=== PATIENT | male | born 1975 | race Caucasian/White ===

== ENCOUNTER 2016-11-21 13:56 | Emergency (ER) | payer OTHER ==
[~2016-11-21] VITALS: Ht 170.2 cm; Wt 67.6 kg
[2016-11-21 14:03] VITALS: BP 128/69
[2016-11-21] MEDS ORDERED: NACL 0.9% 1,000 ML IV SCH (14:08)
--- NOTE | 2016-11-21 14:37 | NUR ---
Patient ambulated to bed 4. RN evaluating patient at bedside.
[2016-11-21] MEDS ORDERED: MULTIVITAMIN-12 10 ML, THIAMINE 100 MG, MAGNESIUM SULFATE 50% 2,000 MG, FOLIC ACID 5 MG... IV ONE (14:48)
[2016-11-21] MEDS ORDERED: NACL 0.9% 1,000 ML IV ONE (14:50)
--- NOTE | 2016-11-21 14:59 | NUR ---
PATIENT PRESENTS TO ED WITH MULTIPLE COMPLAINTS . PT STATES .SKIN IS PINK/WARM/DRY; AAOX4 WITH EVEN AND STEADY GAIT; LUNGS CLEAR BL; HR EVEN AND REGULAR; PATIENT STATES PAIN OF 8/10 AT THIS TIME; VSS; PATIENT POSITIONED FOR COMFORT; HOB ELEVATED; BEDRAILS UP X2; BED DOWN. ER MD MADE AWARE OF PT STATUS.
--- NOTE | 2016-11-21 15:58 | NUR ---
PT REQUESTING TO LEAVE AMA-- SPOKE WITH PT--AGREED TO DC AFTER BANANA BAG INFUSED---PT AGREED TO STAY DC HOME INSTRUCTIONS GIVEN TO PT---ADVICED TO STOP ABUSING ALCOHOL AND SEEK PROFESSIONAL ALCOHOLISM HELP. PT ALLOWED TO VENT--STAYED HE BEGAN DRINKING AFTER MOTHER , UNABLE TO COPE WITH MOTHER'S PASSING. FAMILY HAS TRIED TO HELP PER PT.
[2016-11-21 16:34] VITALS: BP 128/69
--- NOTE | 2016-11-21 16:36 | NUR ---
Patient discharged with v/s stable. Written and verbal after care instructions given and explained. Patient verbalized understanding. Ambulatory with steady gait. All questions addressed prior to discharge. Advised to follow up with PMD.
== END 2016-11-21 16:30 | disposition home or self-care (01) ==
LOC: MED 13:56
DX: K29.20 Alcoholic gastritis without bleeding (principal); F10.10 Alcohol abuse, uncomplicated; E78.5 Hyperlipidemia, unspecified; Y90.8 Blood alcohol level of 240 mg/100 ml or more
CPT/HCPCS: 36415; 71010; 80053; 80305; 81001; 82150; 82248; 83690; 85025; 85610; 85730; 96360; 99285; A9153; G0482; J3411; J3475; J3490; J7030

== ENCOUNTER 2017-11-21 11:17 | Inpatient (IN) | payer OTHER ==
[~2017-11-21] VITALS: Ht 172.7 cm; Wt 64.4 kg
[2017-11-21 11:22] VITALS: BP 152/90
--- NOTE | 2017-11-21 11:29 | NUR ---
PT AMBULATES TO BED 4
[2017-11-21] MEDS ORDERED: PANTOPRAZOLE 40 MG INJ VIAL IVP ONE (12:15)
[2017-11-21] MEDS ORDERED: THIAMINE 200 MG/2 ML VIAL IV ONE (12:15)
[2017-11-21] MEDS ORDERED: NACL 0.9% 2,000 ML IV ONE (12:15)
--- NOTE | 2017-11-21 12:28 | NUR ---
XRAY AT BEDSIDE
--- NOTE | 2017-11-21 12:30 | NUR ---
42-year-old Male who presents to the ED with 2 day history of production of bloody stools. Patient reports that he has been producing black stools for months now associated with intermittent episodes of vomiting blood but has not seek medical treatment. He reports that he has a history of cirrhosis, stomach issues, trouble with urination and bowel movements and is a frequent drinker.
[2017-11-21] MEDS ORDERED: cefTRIAXone 1,000 MG VIAL ONE (12:35)
[2017-11-21 12:46] LABS: BASOPHILS % (AUTO) 0.6 % (0.0-2.0); EOSINOPHILS % (AUTO) 0.9 % (0.0-4.0); HEMATOCRIT 38.2 % (36-52); HEMOGLOBIN 12.8 g/dL (12.0-18.0); LYMPHOCYTES # (AUTO) 0.8 K/uL (2.0-11.5); LYMPHOCYTES % (AUTO) 14.7 % (20.5-51.1); MEAN CORPUSCULAR HEMOGLOBIN 31 pg (27-31); MEAN CORPUSCULAR HGB CONC 34 g/dL (33-37); MONOCYTES # (AUTO) 0.7 K/uL (0.8-1.0); NEUTROPHILS # (AUTO) 3.7 K/uL (1.8-7.7); NEUTROPHILS % (AUTO) 70.8 % (42.2-75.2); PLATELET COUNT (AUTO) 139 K/uL (140-450); RED CELL DISTRIBUTION WIDTH 17.7 % (11.6-13.7); WHITE BLOOD COUNT (AUTO) 5.3 K/uL (4.8-10.8)
[2017-11-21 12:56] LABS: BARBITURATE, URINE NEG. ng/ml (NEG <=200); BENZODIAZEPINE, URINE NEG. ng/mL (NEG <=200); CANNABINOID, URINE POS. ng/mL (NEG <=50); COCAINE, URINE NEG. ng/mL (NEG <=300); OPIATE, URINE NEG. ng/mL (NEG <=2000); PHENCYCLIDINE SCREEN,URINE NEG. ng/mL (NEG <=25)
[2017-11-21 12:58] LABS: PROTHROMBIN TIME 10.4 secs (10.8-13.4)
[2017-11-21] MEDS ORDERED: THIAMINE 100 MG TAB PO SCH (13:03)
[2017-11-21] MEDS ORDERED: MULTIVITAMIN 1 TAB PO SCH (13:04)
[2017-11-21] MEDS ORDERED: FOLIC ACID 1 MG TAB PO SCH (13:04)
[2017-11-21 13:23] LABS: ANION GAP 23.1 (8-16); CARBON DIOXIDE 22.8 mmol/L (21-32); CREATININE 0.7 mg/dL (0.7-1.3); POTASSIUM 3.9 mmol/L (3.5-5.1)
[2017-11-21 13:25] LABS: APPEARANCE,URINE SL CLOUDY (CLEAR); BILIRUBIN,URINE NEGATIVE (NEGATIVE); BLOOD, URINE TRACE-I (NEGATIVE); LEUKOCYTE ESTERASE ,URINE NEGATIVE (NEGATIVE); NITRITE, URINE NEGATIVE (NEGATIVE); PH,URINE 5.5 (5.0-9.0); UGLUCOSE NEGATIVE (NEGATIVE)
[2017-11-21 13:37] LABS: MAGNESIUM 1.6 mg/dL (1.8-2.4); PHOSPHORUS 2.8 mg/dL (2.5-4.9); TOTAL BILIRUBIN 1.1 mg/dL (0.0-1.0)
[2017-11-21 13:58] LABS: COLOR,URINE YELLOW (YELLOW)
[2017-11-21 13:59] LABS: RBC,URINE 0-5 (RARE) /HPF (0-5); WBC,URINE 0-5 (RARE) /HPF (0-5)
[2017-11-21 14:00] LABS: URINE AMORPHOUS URATE 2+ /HPF (None Seen)
[2017-11-21] MEDS ORDERED: NACL 0.9% 1,000 ML IV ONE (16:40)
[2017-11-21] MEDS ORDERED: ACETAMINOPHEN 325 MG TAB PO PRN (16:40)
[2017-11-21] MEDS ORDERED: MORPHINE SULFATE 4 MG/ML SYR IVP PRN (16:40)
[2017-11-21] MEDS ORDERED: ONDANSETRON 4 MG/2 ML VIAL IVP PRN (16:40)
[2017-11-21] MEDS ORDERED: DILTIAZEM 25 MG/5 ML VIAL IVP PRN (16:50)
--- NOTE | 2017-11-21 17:43 | NUR ---
RECEIVED REPORT FROM ER NURSE DALTON. PATIENT ABLE TO AMBULATE TO BED. PATIENT PRESENTS WITH SHAKINESS OF UPPER EXTREMITIES. PATIENT IS ALERT AND ORIENTED X4 AT THIS TIME. PATIENT VITAL SIGNS ARE 99.0, 149/99, 124 HR, 02 96%. SWABBED PATIENT'S NARES WITH MRSA SWAB. PATIENT SHOWS NO SIGNS OF RESPIRATORY DISTRESS. NO PAIN NOTED AT THIS TIME. WILL CONTINUE TO MONITOR PATIENT.
--- NOTE | 2017-11-21 17:45 | NUR ---
Shara breenvika in EDM - 11/21/17 at 1746 by MARY 42-year-old Male who presents to the ED with 2 day history of production of bloody stools. Patient reports that he has been producing black stools for months now associated with intermittent episodes of vomiting blood but has not seek medical treatment.
--- NOTE | 2017-11-21 17:46 | NUR ---
Patient will be admitted to care of DR PATEL. Admited to TELE 126B. Will go to room 126B. Belongings list completed. Report to ERICH.
[2017-11-21] MEDS: chlordiazePOXIDE 25 MG CAP PO SCH (18:27)
--- NOTE | 2017-11-21 18:39 | NUR ---
STARTED PATIENT FLUIDS AT NS 100ML/HR. PATIENT'S IV IS ON THE RIGHT FOREARM. ADMINISTERED PATIENT'S LIBRIUM FOR ALCOHOL WITHDRAWAL. ENCOURAGED PATIENT TO CALL IF HE NEEDS HELP AMBULATING. WILL CONTINUE TO MONITOR PATIENT.
--- NOTE | 2017-11-21 19:13 | NUR ---
RECEIVED REPORT AT BEDSIDE. PT AAOX4. NO S/S OF ACUTE DISTRESS. PT DENIES PAIN. IV SITE PATENT AND INTACT. CALL LIGHT WITHIN REACH. SAFETY MEASURES ENSURED. WILL CONTINUE TO MONITOR.
--- NOTE | 2017-11-21 19:15 | NUR ---
GAVE REPORT TO NIGHTSHIFT NURSE. PATIENT IN STABLE CONDITION.
[2017-11-21 20:00] VITALS: BP 143/86
[2017-11-21] MEDS: PANTOPRAZOLE 40 MG INJ VIAL IVP SCH (21:02)
[2017-11-21] MEDS: LORazepam 2 MG/ML VIAL IVP PRN (22:55)
--- NOTE | 2017-11-21 22:56 | NUR ---
PT STATES HE FEELS ANXIOUS AND CANT SLEEP. ATIVAN GIVEN. WILL CONTINUE TO MONITOR.
[2017-11-21] MEDS ORDERED: PNEUMOCOCCAL VACCINE 23 MCG/0.5 ML VIAL IMVAC SCH (23:00)
[2017-11-21] MEDS ORDERED: PNEUMOCOCCAL VACCINE 23 MCG/0.5 ML VIAL IMVAC PRN (23:00)
[2017-11-22] VITALS: BP 126/86
--- NOTE | 2017-11-22 00:13 | NUR ---
PT SLEEPING IN BED. NO S/S OF ACUTE DISTRESS. CALL LIGHT WITHIN REACH. SAFETY MEASURES ENSURED. WILL CONTINUE TO MONITOR.
[2017-11-22 04:00] VITALS: BP 144/93
--- NOTE | 2017-11-22 07:22 | NUR ---
RECEIVED REPORT FROM NIGHTSHIFT NURSE AT BEDSIDE. PATIENT IS AWAKE AT THIS TIME IN SEMI-FOWLERS POSITION. PATIENT'S IV BAG NEEDS TO BE CHANGED AT THIS TIME. PATIENT ALERT AND ORIENTEDX3. NO COMPLAINTS OF PAIN AT THIS TIME. PATIENT'S IV IS NOTED ON THE RIGHT FOREARM 20G RUNNING 100 ML/HR. PATIENT PRESENTS WITH SHAKING OF EXTREMITIES. INSTRUCTED PATIENT TO CALL IF HE NEEDS HELP WITH AMBULATING. PATIENT UNDERSTOOD INSTRUCTIONS. PUT CALL LIGHT WITHIN REACH OF PATIENT.
[2017-11-22 08:00] VITALS: BP 128/93
--- NOTE | 2017-11-22 08:00 | NUR ---
SWAPPED PATIENT'S IV BAG. HUNG 1000 ML NS AT 100ML/HR.
[2017-11-22] MEDS: chlordiazePOXIDE 25 MG CAP PO SCH ×3 (08:20→16:05)
[2017-11-22 08:21] LABS: BASOPHILS % (AUTO) 0.6 % (0.0-2.0); EOSINOPHILS # (AUTO) 0.1 K/uL (0-0.4); HEMATOCRIT 37.9 % (36-52); HEMOGLOBIN 12.4 g/dL (12.0-18.0); LYMPHOCYTES % (AUTO) 21.2 % (20.5-51.1); MEAN CORPUSCULAR HEMOGLOBIN 31 pg (27-31); MEAN CORPUSCULAR HGB CONC 33 g/dL (33-37); MEAN CORPUSCULAR VOLUME 93.8 fL (80-94); MONOCYTES # (AUTO) 0.6 K/uL (0.8-1.0); MONOCYTES % (AUTO) 13.2 % (1.7-9.3); PLATELET COUNT (AUTO) 120 K/uL (140-450); RED BLOOD CELL COUNT(AUTO) 4.04 MIL/uL (4.20-6.10); RED CELL DISTRIBUTION WIDTH 18.3 % (11.6-13.7); WHITE BLOOD COUNT (AUTO) 4.8 K/uL (4.8-10.8)
[2017-11-22] MEDS: FOLIC ACID 1 MG TAB PO SCH (08:21)
[2017-11-22] MEDS: PANTOPRAZOLE 40 MG INJ VIAL IVP SCH ×2 (08:21→20:37)
[2017-11-22] MEDS: THIAMINE 100 MG TAB PO SCH (08:21)
[2017-11-22 10:27] LABS: ALBUMIN 3.6 g/dL (3.4-5.0); ANION GAP 16.2 (8-16); CARBON DIOXIDE 25.3 mmol/L (21-32); CREATININE 0.8 mg/dL (0.7-1.3); POTASSIUM 3.5 mmol/L (3.5-5.1)
--- NOTE | 2017-11-22 10:30 | NUR ---
PATIENT HAS BEEN SCREENED AND CATEGORIZED MODERATE NUTRITION RISK. PATIENT WILL BE SEEN WITHIN 3-5 DAYS OF ADMISSION. 11/24/17 - 11/26/[address]
--- NOTE | 2017-11-22 11:13 | NUR ---
PATIENT RESTING IN BED AT THIS TIME. NO COMPLAINTS OF PAIN. NO RESPIRATORY DISTRESS OR RESPIRATORY DEPRESSION. WILL CONTINUE TO MONITOR PATIENT.
[2017-11-22 12:00] VITALS: BP 127/72
--- NOTE | 2017-11-22 12:30 | NUR ---
CM NOTE INITIAL REVIEW FAXED TO [facility] [phone] MARIKA # [phone]
--- NOTE | 2017-11-22 13:00 | NUR ---
PATIENT ASLEEP AT THIS TIME. WILL CONTINUE TO MONITOR PATIENT.
--- NOTE | 2017-11-22 14:04 | NUR ---
PATIENT SLEEPING AT THIS TIME. PATIENT SLEEPING IN RIGHT LATERAL POSITION. NO SIGNS OF PAIN AND NO RESPIRATORY DISTRESS OR RESPIRATORY DEPRESSION. WILL CONTINUE TO MONITOR PATIENT.
--- NOTE | 2017-11-22 14:52 | NUR ---
PATIENT'S STOOL IS WATERY, UNFORMED, AND HAS BLOOD. DR. PATEL IS AWARE. DR. PATEL ASKED TO FOLLOW UP WITH DR. MCKEON. PATIENT IS IN STABLE CONDITION AT THIS TIME.
--- NOTE | 2017-11-22 14:59 | NUR ---
TALKED TO DR. MCKEON REGARDING PATIENT'S BLOODY STOOL. SAID HE WILL SEE PATIENT LATER ON TODAY.
[2017-11-22 16:00] VITALS: BP 124/79
--- NOTE | 2017-11-22 18:57 | NUR ---
PATIENTS FAMILY AT BEDSIDE. PATIENT IN NO RESPIRATORY DISTRESS. NO COMPLAINTS OF PAIN AT THIS TIME. WILL CONTINUE TO MONITOR PATIENT.
--- NOTE | 2017-11-22 19:11 | NUR ---
GAVE REPORT TO NIGHTSHIFT NURSE AT BEDSIDE. PATIENT IN STABLE CONDITION.
[2017-11-22 20:00] VITALS: BP 117/80
[2017-11-22] MEDS: LORazepam 2 MG/ML VIAL IVP PRN (20:37)
--- NOTE | 2017-11-22 20:39 | NUR ---
DUE MEDS GIVEN AT THIS TIME. PT STATES HE FEELS ANXIOUS AT THIS TIME AND REQUESTS ATIVAN. NO S/S OF ACUTE DISTRESS. PT DENIES PAIN. CALL LIGHT WITHIN REACH. SAFETY MEASURES ENSURED. WILL CONTINUE TO MONITOR.
[2017-11-23] VITALS: BP 132/86
[2017-11-23 04:00] VITALS: BP 136/88
--- NOTE | 2017-11-23 07:10 | NUR ---
ASSUMED CONTINUITY OF CARE. NO SIGNS AND SYMPTOMS OF ACUTE DISTRESS NOTED. INITIAL ASSESSMENT DONE. EXPLAINED DIAGNOSIS, PLAN OF CARE, PAIN MANAGEMENT TEACHING, USE OF CALL LIGHT/BED/TV/BATHROOM. VERBALIZED UNDERSTANDING. FALL PRECAUTION APPLIED. CALL LIGHT WITHIN REACH.
[2017-11-23] MEDS ORDERED: MIDAZOLAM 2 MG/2 ML VIAL ONE ×2 (07:53→07:54)
[2017-11-23] MEDS ORDERED: fentaNYL 0.05 MG/ML VIAL ONE (07:53)
[2017-11-23 08:00] VITALS: BP 137/84
--- NOTE | 2017-11-23 08:00 | NUR ---
Patient's Plan of Care was discussed and reviewed with CATTLE BROKER: ANA MARIA
--- NOTE | 2017-11-23 08:17 | NUR ---
WENT TO GI [facility]. AWAKE, ALERT, AND ORIENTED X4. NO C/O PAIN. IN STABLE CONDITION.
[2017-11-23] MEDS ORDERED: MUPIROCIN 2% OINT 22 GM TUBE TP SCH (09:00)
[2017-11-23] MEDS ORDERED: fentaNYL 0.05 MG/ML VIAL IVP ONE (09:15)
[2017-11-23] MEDS ORDERED: MIDAZOLAM 2 MG/2 ML VIAL IV ONE (09:15)
--- NOTE | 2017-11-23 09:21 | NUR ---
[facility] NO ACUTE DISTRESS NOTED. KEEP COMFORTABLE ON BED. CALL LIGHT WITHIN REACH.
[2017-11-23] MEDS: FOLIC ACID 1 MG TAB PO SCH (09:35)
[2017-11-23] MEDS: THIAMINE 100 MG TAB PO SCH (09:35)
[2017-11-23] MEDS: chlordiazePOXIDE 25 MG CAP PO SCH ×2 (09:36→12:42)
[2017-11-23] MEDS: PANTOPRAZOLE 40 MG INJ VIAL IVP SCH (10:06)
--- NOTE | 2017-11-23 10:25 | NUR ---
EXPLAINED AND EDUCATED PT. ABOUT MRSA + NARES, AND ISOLATION PRECAUTION. VERBALIZED UNDERSTANDING.
--- NOTE | 2017-11-23 10:32 | NUR ---
PAGED DR. PATEL REGARDING PT. MRSA + NARES. LEFT CALL BACK NUMBER.
[2017-11-23 12:00] VITALS: BP 122/89
--- NOTE | 2017-11-23 12:39 | NUR ---
CM NOTE CONCURRENT REVIEW FAXED TO [facility] [phone] MARIKA # [phone]
--- NOTE | 2017-11-23 14:45 | NUR ---
HANY BRYANT, REVIEWED PT. CHART AND SEEN PT..
--- NOTE | 2017-11-23 14:56 | NUR ---
PAGED DR. MCKEON REGARDING DR. PATEL REQUEST IF PT. CAN BE D/C HOME. LEFT CALL BACK NUMBER.
--- NOTE | 2017-11-23 15:02 | NUR ---
DR. MCKEON CALLED BACK, AND SAID THAT PT. CAN BE D/C HOME AND FOLLOW UP WITH DR. MCKEON CLINIC IN [address]. [address] PATEL THAT PER DR. MCKEON PT. CAN BE D/C HOME WITH F/U IN [address] MCKEON CLINIC. ALSO INFORMED CHARGE NURSE KYLAH VASQUEZ.
[2017-11-23] MEDS ORDERED: LORA-476 PO (15:18)
[2017-11-23] MEDS ORDERED: PANT40EC PO (15:19)
[2017-11-23 15:47] LABS: ALBUMIN 3.7 g/dL (3.4-5.0); ANION GAP 15.6 (8-16); CARBON DIOXIDE 23.5 mmol/L (21-32); POTASSIUM 3.1 mmol/L (3.5-5.1); TOTAL BILIRUBIN 1.8 mg/dL (0.0-1.0)
[2017-11-23 15:49] LABS: HEMATOCRIT 39.1 % (36-52); HEMOGLOBIN 12.9 g/dL (12.0-18.0)
--- NOTE | 2017-11-23 16:01 | NUR ---
PAGED HANY LUTZ AND SPOKE TO MAGED REGARDING PT. K 3.1. LEFT CALL BACK NUMBER. INFORMED CHARGE NURSE KYLAH VASQUEZ.
--- NOTE | 2017-11-23 16:15 | NUR ---
EXPLAINED ABOUT K 3.1 AND JUST WAITING FOR HANY LUTZ FOR ORDERS. PT. DON'T WANT TO WAIT FOR ORDERS. INSISTED TO BE D/C AT THIS TIME. REFUSED VS CHECK BEFORE D/C. NO ACUTE DISTRESS NOTED. REFUSED WHEELCHAIR FOR D/C. PT. AMBULATORY. D/C HOME, AWAKE, ALERT, AND ORIENTED X4. SPEECH CLEAR. NO C/O PAIN. NO SOB, NOTED. IN STABLE CONDITION. INFORMED CHARGE NURSE KYLAH VASQUEZ.
--- NOTE | 2017-11-23 16:33 | NUR ---
HANY LUTZ CALLED BACK AND INFORMED PT. HGB 12.9, HCT 39.1, AND K 3.1. ALSO INFORMED HANY LUTZ THAT PT. WAS D/C AT 1615 AND DID NOT WAIT ORDERS FOR LOW K. HANY LUTZ SAID "THAT'S FINE. INFORMED CHARGE NURSE KYLAH VASQUEZ.
[2017-11-24] MEDS ORDERED: CHLORHEXADINE GLUC 2% CLOTH TP SCH (09:00)
--- NOTE | 2017-11-24 12:49 | NUR ---
CM NOTE DC SUMMARY FAXED TO [facility] [phone] MARIKA # [phone]
== END 2017-11-23 16:15 | disposition home or self-care (01) | DRG 775 ==
LOC: MED 11:17 → MMU 16:45
PROVIDERS: ADMIT Hospitalist; ATTEND Hospitalist
PROC: 0DB68ZX Excision of Stomach, Via Natural or Artificial Opening Endoscopic, Diagnostic (ICD-10-PCS; principal; 2017-11-23 08:30)
DX: F10.239 Alcohol dependence with withdrawal, unspecified (principal); E87.2 Acidosis; I85.10 Secondary esophageal varices without bleeding; K29.01 Acute gastritis with bleeding; E83.42 Hypomagnesemia; K70.30 Alcoholic cirrhosis of liver without ascites; E78.5 Hyperlipidemia, unspecified; F41.9 Anxiety disorder, unspecified; F12.10 Cannabis abuse, uncomplicated; K44.9 Diaphragmatic hernia without obstruction or gangrene; Y90.9 Presence of alcohol in blood, level not specified; F17.210 Nicotine dependence, cigarettes, uncomplicated; F19.10 Other psychoactive substance abuse, uncomplicated
CPT/HCPCS: 36415; 71045; 76700; 80053; 80305; 81001; 82140; 83605; 83690; 83735; 84100; 84484; 85018; 85025; 85610; 85730; 86677; 86886; 86900; 86901; 87081; 87086; 93005; 96365; 96375; 99285; C9113; G0482; J0696; J2060; J2250; J3010; J7030; J7060; Q0092

== ENCOUNTER 2019-06-23 15:17 | Inpatient (IN) | payer MEDICAID, OTHER ==
[~2019-06-23] VITALS: Ht 172.7 cm; Wt 64.4 kg
[~2019-06-23 15:17] MED LIST: LORA-476 PO; PANT40EC PO
[2019-06-23 16:02] VITALS: BP 133/93
--- NOTE | 2019-06-23 16:07 | NUR ---
ASSISTED PT TO WAIT IN THE LOBBY.
[2019-06-23 16:52] LABS: BASOPHILS # (AUTO) 0.2 K/uL (0.00-0.22); EOSINOPHILS # (AUTO) 0.1 K/uL (0-0.4); EOSINOPHILS % (AUTO) 0.8 % (0.0-4.0); HEMATOCRIT 25.2 % (36-52); HEMOGLOBIN 7.6 g/dL (12.0-18.0); LYMPHOCYTES # (AUTO) 1.5 K/uL (2.0-11.5); LYMPHOCYTES % (AUTO) 22.9 % (20.5-51.1); MEAN CORPUSCULAR HEMOGLOBIN 25 pg (27-31); MEAN CORPUSCULAR HGB CONC 30 g/dL (33-37); MONOCYTES # (AUTO) 0.7 K/uL (0.8-1.0); MONOCYTES % (AUTO) 11.6 % (1.7-9.3); NEUTROPHILS % (AUTO) 61.7 % (42.2-75.2); PLATELET COUNT (AUTO) 190 K/uL (140-450); RED BLOOD CELL COUNT(AUTO) 3.08 MIL/uL (4.20-6.10); RED CELL DISTRIBUTION WIDTH 25.4 % (11.6-13.7); WHITE BLOOD COUNT (AUTO) 6.4 K/uL (4.8-10.8)
[2019-06-23 17:14] LABS: ALBUMIN 3.5 g/dL (3.4-5.0); ANION GAP 19.8 (8-16); CARBON DIOXIDE 21.8 mmol/L (21-32); CREATININE 0.6 mg/dL (0.7-1.3); POTASSIUM 3.6 mmol/L (3.5-5.1); TOTAL BILIRUBIN 0.4 mg/dL (0.0-1.0)
--- NOTE | 2019-06-23 17:25 | NUR ---
PT AMBULATED TO BED 10.
[2019-06-23 17:33] LABS: PROTHROMBIN TIME 9.4 secs (10.8-13.4)
--- NOTE | 2019-06-23 17:50 | NUR ---
C/O INTERMITTENT BRIGHT RED BLOOD PER RECTUM WITH FREQUENT LOOSE STOOLS, DAILY ETOH ABUSE WITH MILD TREMORS AT THIS TIME--- RIGHT EYE SWELLING REDNESS PAIN SURROUNDING OD--DENIES INJURY
--- NOTE | 2019-06-23 19:14 | NUR ---
Report given to DEMARCO burgess, MARCUS Valladares.
--- NOTE | 2019-06-23 19:15 | NUR ---
REPORT RECEIVED FROM MARCUS SAAVEDRA. TRANSFER OF CARE AT THIS TIME.
--- NOTE | 2019-06-23 19:18 | NUR ---
PT AWAKE, A/O X4. CALM, COOPERATIVE. ABLE TO ANSWER QUESTIONS WITHOUT DIFFICULTY WITH CLEAR, FULL SENTENCES. PT REPORTS 5/10 PAIN TO RIGHT SIDE FACE RADIATING TO EYE WHERE SWELLING AND REDNESS IS PRESENT. PT ALSO STATES HE FEELS A LITTLE ANXIOUS DUE TO ETOH WITHDRAWAL.
--- NOTE | 2019-06-23 19:20 | NUR ---
DR. KELLY EVALUATING AT BEDSIDE.
[2019-06-23] MEDS ORDERED: PIPERACILLIN/TAZOBACTAM 3.375 GM in DEXTROSE 5% 50 ML IV ONE (19:25)
[2019-06-23] MEDS ORDERED: PIPERACILLIN/TAZOBACTAM 3.375 GM VIAL IV ONE (19:36)
--- NOTE | 2019-06-23 19:40 | NUR ---
BLOOD CX DRAWN AT BEDSIDE.
[2019-06-23] MEDS ORDERED: ACETAMINOPHEN 325 MG TAB PO PRN (19:45)
[2019-06-23] MEDS ORDERED: MORPHINE SULFATE 2 MG/ML SYR IVP PRN (19:45)
[2019-06-23] MEDS ORDERED: HYDROcodone/APAP 7.5/325 MG 1 TAB PO PRN (19:45)
[2019-06-23] MEDS ORDERED: ONDANSETRON 4 MG/2 ML VIAL IM/IVP PRN (19:45)
[2019-06-23] MEDS ORDERED: NACL 0.9% 1,000 ML IV SCH (20:00)
--- NOTE | 2019-06-23 20:00 | NUR ---
DR. SINGH EVALUATING AT BEDSIDE.
--- NOTE | 2019-06-23 20:15 | NUR ---
PT SIGNED CONSENT FORM FOR BLOOD TRANSFUSION, WITNESSED BY PRIMARY RN, SIGNED BY DR. KELLY.
--- NOTE | 2019-06-23 20:20 | NUR ---
URINE SAMPLE COLLECTED VIA URINAL.
--- NOTE | 2019-06-23 20:25 | NUR ---
PATIENT TRANSFERRED TO [facility] VIA GURNEY, PATIENT ABLE TO AMBULATE TO BED.
[2019-06-23 20:30] VITALS: BP 125/85
--- NOTE | 2019-06-23 20:30 | NUR ---
RECEIVED ENDORSEMENT FROM ER NURSE AT PATIENTS BEDSIDE, WILL FOLLOWUP CARE
--- NOTE | 2019-06-23 20:30 | NUR ---
Patient will be admitted to care of Dr. Raya. Admited to Telemetry. Will go to room 106B. Belongings list completed. Report to MARCUS Mcwilliams.
[2019-06-23 20:38] LABS: APPEARANCE,URINE CLEAR (CLEAR); BILIRUBIN,URINE NEGATIVE (NEGATIVE); BLOOD, URINE TRACE-L (NEGATIVE); COLOR,URINE YELLOW (YELLOW); LEUKOCYTE ESTERASE ,URINE NEGATIVE (NEGATIVE); NITRITE, URINE NEGATIVE (NEGATIVE); PH,URINE 5.5 (5.0-9.0); UGLUCOSE NEGATIVE (NEGATIVE)
[2019-06-23 20:45] LABS: BARBITURATE, URINE NEG. ng/ml (NEG <=200); BENZODIAZEPINE, URINE NEG. ng/mL (NEG <=200); CANNABINOID, URINE NEG. ng/mL (NEG <=50); COCAINE, URINE NEG. ng/mL (NEG <=300); OPIATE, URINE NEG. ng/mL (NEG <=2000); PHENCYCLIDINE SCREEN,URINE NEG. ng/mL (NEG <=25)
[2019-06-23 20:48] LABS: RBC,URINE 0-5 /HPF (0-5); WBC,URINE 0-5 /HPF (0-5)
[2019-06-23] MEDS: PANTOPRAZOLE 40 MG INJ VIAL IVP SCH (20:57)
[2019-06-23 20:59] LABS: FREE T4 (FREE THYROXINE) 0.88 ng/dL (0.76-1.46); THYROID STIMULATING HORMONE 0.5 uIU/mL (0.34-3.74)
[2019-06-23 21:00] LABS: MAGNESIUM 1.8 mg/dL (1.8-2.4); PHOSPHORUS 3.1 mg/dL (2.5-4.9)
[2019-06-23] MEDS ORDERED: NACL 0.9% 1,000 ML IV ONE (21:00)
[2019-06-23] MEDS ORDERED: LORazepam 1 MG TAB PO SCH (21:00)
[2019-06-23] MEDS ORDERED: LORazepam 2 MG/ML VIAL IVP SCH ×2 (21:00→22:30)
--- NOTE | 2019-06-23 21:00 | NUR ---
RECEIVED PATIENT SITTING UP IN BED, ANOx4, ON ROOM AIR. PATIENT ABLE TO MAKE NEEDS KNOWN, FOLLOWS SIMPLE COMMANDS. ON TELE MONITOR, SINUS TACH, HEART RATE 135, BP-125/85, RR-16, TEMP-99.2. SKIN WARM AND DRY, INTACT. RIGHT AC PERIPHERAL IV 20G, FLUSHED AND PATENT, NO SYMPTOMS, SALINE LOCKED. ABDOMEN SOFT AND NONTENDER, ACTIVE BOWEL SOUNDS. PATIENT IS CONTINENT, AMBULATES TO RESTROOM. PATIENT HAS TREMORS, OBVIOUS SHAKING NOTED, PATIENT IS COOPERATIVE AND RN WILL DISCUSS CAREPLAN. ORIENTED TO CALL LIGHT AND BATHROOM. BED LOCKED AND IN LOW POSITION, SIDERAILS UP x2, CALL LIGHT WITHIN REACH, WILL FOLLOWUP ON ADMITTING ORDERS
[2019-06-23] MEDS: DEXT 5% /NACL 0.9% 1,000 ML IV SCH (21:33)
--- NOTE | 2019-06-23 22:15 | NUR ---
PATIENTS HEART RATE INCREASING TO 150'S. ORIENTED TO FAMILY THAT PATIENT NEEDS REST AND SHOULD MINIMIZE AROUSAL-(FAMILY MEMBERS VISITING AND BROUGHT IN IPAD TO WATCH BOXING), FAMILY WILL RETURN IN A.M. RESIDENT DOCTOR MADE AWARE THAT PATIENTS HEART RATE IS INCREASING, RESIDENT DOCTOR AT BEDSIDE TO ASSESS PATIENT. NEW ORDERS FOR ANOTHER DOSE OF ATIVAN AND BNP BMP. WILL CARRY OUT
[2019-06-23 22:59] LABS: BASOPHILS # (AUTO) 0.1 K/uL (0.00-0.22); HEMATOCRIT 21.1 % (36-52); MONOCYTES # (AUTO) 0.7 K/uL (0.8-1.0); WHITE BLOOD COUNT (AUTO) 5.6 K/uL (4.8-10.8)
[2019-06-23 23:02] LABS: EOSINOPHILS % (AUTO) 0.4 % (0.0-4.0); LYMPHOCYTES # (AUTO) 0.5 K/uL (2.0-11.5); LYMPHOCYTES % (AUTO) 9.5 % (20.5-51.1); MEAN CORPUSCULAR HEMOGLOBIN 25 pg (27-31); MEAN CORPUSCULAR HGB CONC 31 g/dL (33-37); MONOCYTES % (AUTO) 12.1 % (1.7-9.3); NEUTROPHILS # (AUTO) 4.3 K/uL (1.8-7.7); PLATELET COUNT (AUTO) 141 K/uL (140-450); RED BLOOD CELL COUNT(AUTO) 2.61 MIL/uL (4.20-6.10); RED CELL DISTRIBUTION WIDTH 25.6 % (11.6-13.7)
[2019-06-23 23:14] LABS: HEMOGLOBIN 6.6 g/dL (12.0-18.0)
--- NOTE | 2019-06-23 23:45 | NUR ---
CALLED BLOOD BANK REGARDING PT'S BLOOD.IT IS NOT READY YET.THEY ARE WAITING FOR EMPERATRIZ.
[2019-06-24] VITALS: BP 128/82
--- NOTE | 2019-06-24 00:50 | NUR ---
ASSISTED PATIENT TO RESTROOM, VOIDED AND HAD A BOWEL MOVEMENT, PATIENT FORGOT TO ALLOW RN TO ASSESS STOOL BEFORE FLUSHING. PATIENT REPORTS HE FORGOT TO CHECK FOR BLOOD WHEN WIPING. PATIENT AMBULATES BACK TO BED WITHOUT INCIDENTS.
--- NOTE | 2019-06-24 02:25 | NUR ---
SPOKE WITH RESIDENT DOCTOR, BLOOD IS READY FOR TRANSFUSION, BASELINE VITALS SHOW HIGH TEMPERATURE OF 100.7, RECHECKED TEMPERATURE, ORAL IS 102. MD AWARE, ORDERED TO GIVE TYLENOL AND CONTINUE WITH BLOOD TRANSFUSION. WILL CARRY OUT
--- NOTE | 2019-06-24 02:45 | NUR ---
STARTING BLOOD TRANSFUSION, VERIFIED BY 2 PERSON VERIFICATION, PATIENT EDUCATED ON SIGNS AND SYMPTOMS OF REACTION, RN AT BEDSIDE
[2019-06-24 04:00] VITALS: BP 133/74
--- NOTE | 2019-06-24 07:25 | NUR ---
RECEIVED BEDSIDE REPORT FROM PRIVATE EQUITY ANALYST NURSE FOR CONTINUITY OF CARE. PATIENT IS AWAKE AND RESTING ON BED AT THIS TIME. PATIENT IS AAOX4. RESPIRATION EVEN AND UNLABORED ON RA. DENIED PAIN, SOB, DIZZINESS; NO SIGNS OF BLOOD TRANSFUSION ADVERSE REACTIONS. IV ON LFA 22G, CLEAN AND INTACT, INFUSING BLOOD AT THIS TIME AT 100ML/HR. SWELLING AND REDNESS AROUND RIGHT EYE NOTED, OTHERWISE SKIN CLEAN AND DRY. PATIENT IS CONTINENT AND ABLE TO AMBULATE TO THE BATHROOM WITH STANDBY ASSIST. DISCUSSED PLAN OF CARE WITH PATIENT AND PATIENT VERBALIZED UNDERSTANDING. PO ENFORCED AND SIGN POSTED ON DOOR, PATIENT WAS AWARE THAT HE HAS TO MAINTAIN NPO. TELE MONITOR ATTACHED. SAFETY MEASURES IN PLACE. BED IN LOW POSITION AND CALL LIGHT WITHIN REACH. INSTRUCTED PATIENT TO USE THE CALL LIGHT FOR ANY ASSISTANCE AND PATIENT WAS AWARE.
--- NOTE | 2019-06-24 07:50 | NUR ---
BLOOD TRANSFUSION VITAL SIGNS TAKEN, PATIENT DENIED SOB, DIZZINESS, NO FEVER. NO SIGNS OF ADVERSE REACTION. PATIENT IS AWAKE AND RESTING ON BED AT THIS TIME.TELE MONITOR ATTACHED. SAFETY MEASURES IN PLACE. BED IN LOW POSITION AND CALL LIGHT WITHIN REACH. INSTRUCTED PATIENT TO USE THE CALL LIGHT FOR ANY ASSISTANCE AND PATIENT WAS AWARE.
[2019-06-24 08:00] VITALS: BP 138/85
--- NOTE | 2019-06-24 08:20 | NUR ---
PATIENT IS TALKING TO BROTHER AT BEDSIDE. NO SIGNS OF DISTRESS NOTED.INSTRUCTED PATIENT'S BROTHER SUAL TO PUT ON PPE AT ALL TIME IN PATIENT'S ROOM DUE TO PATIENT IS ISOLATED FOR HX MRSA NARES, SUAL WAS AWARE. TELE MONITOR ATTACHED. SAFETY MEASURES IN PLACE. BED IN LOW POSITION AND CALL LIGHT WITHIN REACH. INSTRUCTED PATIENT TO USE THE CALL LIGHT FOR ANY ASSISTANCE AND PATIENT WAS AWARE.
--- NOTE | 2019-06-24 08:40 | NUR ---
DR ROSE AND DR BALES IS TALKING TO PATIENT AT BEDSIDE. NO SIGNS OF DISTRESS NOTED. SAFETY MEASURES IN PLACE.
--- NOTE | 2019-06-24 09:01 | NUR ---
OBTAINED CONSENT FOR EGD, PATIENT WAS AWARE AND AGREED TO PROCEDURE. DR ROSE EXPLAINED TO PATIENT ON REGARDS OF RISK AND BENEFITS, PATIENT WAS AWARE. PATIENT IS TALKING TO BROTHER DEMI AT BEDSIDE. NO SIGNS OF DISTRESS NOTED. SAFETY MEASURES IN PLACE.
--- NOTE | 2019-06-24 09:35 | NUR ---
BLOOD TRANSFUSION COMPLETED AT 0920 AND POST VITAL SIGNS TAKEN AT THIS TIME. PATIENT DENIED SOB, HOT, DIZZINESS. NO BLOOD TRANSFUSION REACTION NOTED. PATIENT IS AWAKE AND TALKING TO BROTHER DEMI AT BEDSIDE. NO SIGNS OF DISTRESS NOTED. TELE MONITOR ATTACHED. SAFETY MEASURES IN PLACE. BED IN LOW POSITION AND CALL LIGHT WITHIN REACH. INSTRUCTED PATIENT TO USE THE CALL LIGHT FOR ANY ASSISTANCE AND PATIENT WAS AWARE.
--- NOTE | 2019-06-24 09:40 | NUR ---
PATIENT IS OFF UNIT TO OR ACCOMPANIED BY OR NURSE GARY. PATIENT IS IN STABLE CONDITION.
[2019-06-24] MEDS ORDERED: MIDAZOLAM 2 MG/2 ML VIAL ONE (09:47)
[2019-06-24] MEDS ORDERED: fentaNYL 0.05 MG/ML VIAL ONE (09:47)
[2019-06-24] MEDS ORDERED: diphenhydrAMINE 50 MG/ML VIAL ONE (09:47)
--- NOTE | 2019-06-24 10:20 | NUR ---
PATIENT CAME BACK FROM EGD PROCEDURE. VITAL SIGNS TAKEN. PATIENT IS TALKING TO BROTHPREETI SIMMS AT BEDSIDE. NO SIGNS OF DISTRESS NOTED. TELE MONITOR ATTACHED. SAFETY MEASURES IN PLACE. BED IN LOW POSITION AND CALL LIGHT WITHIN REACH. INSTRUCTED PATIENT TO USE THE CALL LIGHT FOR ANY ASSISTANCE AND PATIENT WAS AWARE.
--- NOTE | 2019-06-24 10:35 | NUR ---
OBTAINED CONSENT FOR COLONOSCOPY AND PATIENT WAS AWARE AND ACKNOWLEDGED OF THE PROCEDURE.
[2019-06-24 11:04] LABS: HEMATOCRIT 27.2 % (36-52); HEMOGLOBIN 8.6 g/dL (12.0-18.0); MEAN CORPUSCULAR HEMOGLOBIN 26 pg (27-31); MEAN CORPUSCULAR HGB CONC 32 g/dL (33-37); MEAN CORPUSCULAR VOLUME 81.1 fL (80-94); PLATELET COUNT (AUTO) 133 K/uL (140-450); RED BLOOD CELL COUNT(AUTO) 3.35 MIL/uL (4.20-6.10); RED CELL DISTRIBUTION WIDTH 22.3 % (11.6-13.7); WHITE BLOOD COUNT (AUTO) 4.9 K/uL (4.8-10.8)
[2019-06-24] MEDS ORDERED: fentaNYL 0.05 MG/ML VIAL IVP ONE (11:10)
[2019-06-24] MEDS ORDERED: MIDAZOLAM 2 MG/2 ML VIAL IVP ONE (11:10)
[2019-06-24] MEDS ORDERED: diphenhydrAMINE 50 MG/ML VIAL IVP ONE (11:10)
[2019-06-24] MEDS: PANTOPRAZOLE 40 MG INJ VIAL IVP SCH ×2 (11:13→20:50)
[2019-06-24] MEDS: SODIUM FERRIC GLUCONATE 125 MG in NACL 0.9% 100 ML IV SCH (11:14)
[2019-06-24] MEDS: FOLIC ACID 1 MG TAB PO SCH (11:14)
[2019-06-24] MEDS: LORazepam 2 MG/ML VIAL IVP SCH ×3 (11:14→20:50)
[2019-06-24] MEDS: THIAMINE 100 MG TAB PO SCH (11:14)
[2019-06-24] MEDS: MULTIVITAMIN 1 TAB PO SCH (11:15)
[2019-06-24] MEDS: DEXT 5% /NACL 0.9% 1,000 ML IV SCH ×2 (11:17→22:28)
[2019-06-24] MEDS: PIPERACILLIN/TAZOBACTAM 3.375 GM in DEXTROSE 5% 50 ML IV SCH ×3 (11:19→20:47)
--- NOTE | 2019-06-24 11:19 | NUR ---
ADMINISTERED MEDS PER MD ORDER, PATIENT TOLERATED WELL, MED EDUCATION PROVIDED TO PATIENT AND PATIENT VERBALIZED UNDERSTANDING. PATIENT AWAKE AND TALKING TO BROTHER DEMI BY BEDSIDE. NO SIGNS OF DISTRESS NOTED. SAFETY MEASURES IN PLACE. TELE MONITOR ATTACHED.
[2019-06-24 11:23] LABS: ANION GAP 13.2 (8-16); CARBON DIOXIDE 25.1 mmol/L (21-32); CREATININE 0.6 mg/dL (0.7-1.3); POTASSIUM 3.3 mmol/L (3.5-5.1)
[2019-06-24 11:32] LABS: CHOL/HDL RATIO 1.3 (1-4.5)
[2019-06-24 11:51] LABS: BASOPHILS % (MANUAL) 0 % (0-2); EOSINOPHILS % (MANUAL) 0 % (0-4); LYMPHOCYTES % (MANUAL) 24 % (20-46); MONOCYTES % (MANUAL) 16 % (5-12)
[2019-06-24 12:00] VITALS: BP 134/80
[2019-06-24] MEDS: LACTULOSE 20 GM/30 ML UDC PO SCH ×3 (13:03→20:50)
[2019-06-24] MEDS: SENNA 8.6 MG TAB PO SCH ×2 (13:04→17:10)
--- NOTE | 2019-06-24 13:04 | NUR ---
ADMINISTERED MEDS PER MD ORDER, MEDS EDUCATION PROVIDED TO PATIENT AND PATIENT VERBALIZED UNDERSTANDING. PATIENT IS AWAKE AND WATCHING TV AT THIS TIME. DENIED PAIN, SOB AND DIZZINESS. BROTHER DEMI IS BY BEDSIDE. NO SIGNS OF DISTRESS NOTED. TELE MONITOR ATTACHED. SAFETY MEASURES IN PLACE. BED IN LOW POSITION AND CALL LIGHT WITHIN REACH. INSTRUCTED PATIENT TO USE THE CALL LIGHT FOR ANY ASSISTANCE AND PATIENT WAS AWARE.
[2019-06-24] MEDS ORDERED: KCL 20 MEQ/WATER INJ PREMIX 200 ML IV ONE (15:00)
--- NOTE | 2019-06-24 15:22 | NUR ---
ADMINISTERED POTASSIUM CHLORIDE VIA IV, EDUCATION PROVIDED TO PATIENT AND PATIENT IS VERBALIZED UNDERSTANDING. PATIENT IS RESTING ON BED. DENIED SOB, PAIN AND DIZZINESS. BROTHER DEMI IS BY BEDSIDE. NO SIGNS OF DISTRESS NOTED. TELE MONITOR ATTACHED. SAFETY MEASURES IN PLACE. BED IN LOW POSITION AND CALL LIGHT WITHIN REACH. INSTRUCTED PATIENT TO USE THE CALL LIGHT FOR ANY ASSISTANCE AND PATIENT WAS AWARE.
[2019-06-24 16:00] VITALS: BP 128/82
--- NOTE | 2019-06-24 17:10 | NUR ---
ADMINISTERED SCHEDULED MEDS PER MD ORDER, MEDS EDUCATION PROVIDED TO PATIENT AND PATIENT VERBALIZED UNDERSTANDING. PATIENT AWAKE AND TALKING TO BROTHER DEMI AT BEDSIDE. NO SIGNS OF DISTRESS NOTED. SAFETY MEASURES IN PLACE.
[2019-06-24 17:43] LABS: BASOPHILS # (AUTO) 0.1 K/uL (0.00-0.22); BASOPHILS % (AUTO) 2.1 % (0.0-2.0); EOSINOPHILS # (AUTO) 0.1 K/uL (0-0.4); EOSINOPHILS % (AUTO) 1.1 % (0.0-4.0); HEMATOCRIT 29.8 % (36-52); HEMOGLOBIN 9.4 g/dL (12.0-18.0); LYMPHOCYTES # (AUTO) 1.2 K/uL (2.0-11.5); LYMPHOCYTES % (AUTO) 19.8 % (20.5-51.1); MEAN CORPUSCULAR HEMOGLOBIN 26 pg (27-31); MEAN CORPUSCULAR HGB CONC 32 g/dL (33-37); MONOCYTES % (AUTO) 16.6 % (1.7-9.3); NEUTROPHILS # (AUTO) 3.6 K/uL (1.8-7.7); NEUTROPHILS % (AUTO) 60.4 % (42.2-75.2); PLATELET COUNT (AUTO) 153 K/uL (140-450); RED BLOOD CELL COUNT(AUTO) 3.68 MIL/uL (4.20-6.10); RED CELL DISTRIBUTION WIDTH 22.3 % (11.6-13.7); WHITE BLOOD COUNT (AUTO) 5.9 K/uL (4.8-10.8)
--- NOTE | 2019-06-24 18:40 | NUR ---
PATIENT AWAKE AND TALKING TO BROTHPREETI SIMMS AT BEDSIDE. NO SIGNS OF DISTRESS NOTED.TELE MONITOR ATTACHED. SAFETY MEASURES IN PLACE. BED IN LOW POSITION AND CALL LIGHT WITHIN REACH. INSTRUCTED PATIENT TO USE THE CALL LIGHT FOR ANY ASSISTANCE AND PATIENT WAS AWARE.
--- NOTE | 2019-06-24 19:29 | NUR ---
ENDORSED PATIENT AT BEDSIDE TO GEOTHERMAL POWERPLANT SUPERVISOR NURSE FOR CONTINUITY OF CARE. PATIENT IS IN STABLE CONDITION. TELE MONITOR ATTACHED. SAFETY MEASURES IN PLACE.
--- NOTE | 2019-06-24 19:30 | NUR ---
RECEIVED REPORT FROM AM SHIFT NURSE. PATIENT ALERT AND ORIENTED X3. NO APPARENT DISTRESS NOTED. INTRODUCED SELF AND UPDATED BOARD. IVF INFUSING ON LEFT FOREARM G22. NO INFILTRATION NOTED. BED ON LOW POSITION. WILL CONTINUE TO MONITOR.
[2019-06-24 20:00] VITALS: BP 145/86
[2019-06-24] MEDS: SUPREP BOWEL PREP KIT 354 ML SOLN.RECON PO SCH (20:52)
--- NOTE | 2019-06-24 21:20 | NUR ---
ASSISTED PATIENT TO BATHROOM. WILL CONTINUE TO MONITOR.
--- NOTE | 2019-06-24 23:10 | NUR ---
PATIENT ASLEEP IN BED. NO APPARENT DISTRESS NOTED. WILL CONTINUE TO MONITOR.
[2019-06-25] VITALS: BP 146/93
--- NOTE | 2019-06-25 01:05 | NUR ---
ASSISTED PATIENT TO BATHROOM. NO DISTRESS NOTED. WILL CONTINUE TO MONITOR.
--- NOTE | 2019-06-25 03:00 | NUR ---
PATIENT ASLEEP IN BED. NO DISTRESS NOTED. WILL CONTINUE TO MONITOR.
[2019-06-25 04:00] VITALS: BP 138/93
--- NOTE | 2019-06-25 05:00 | NUR ---
PATIENT AWAKE IN BED, TALKING TO BROTHER. NO DISTRESS NOTED. WILL CONTINUE TO MONITOR.
[2019-06-25 05:38] LABS: BASOPHILS # (AUTO) 0.1 K/uL (0.00-0.22); BASOPHILS % (AUTO) 1.9 % (0.0-2.0); EOSINOPHILS # (AUTO) 0.1 K/uL (0-0.4); EOSINOPHILS % (AUTO) 1.9 % (0.0-4.0); HEMATOCRIT 29.9 % (36-52); HEMOGLOBIN 9.4 g/dL (12.0-18.0); LYMPHOCYTES % (AUTO) 20.3 % (20.5-51.1); MEAN CORPUSCULAR HEMOGLOBIN 25 pg (27-31); MEAN CORPUSCULAR HGB CONC 31 g/dL (33-37); MEAN CORPUSCULAR VOLUME 80.8 fL (80-94); MONOCYTES # (AUTO) 0.6 K/uL (0.8-1.0); MONOCYTES % (AUTO) 12.8 % (1.7-9.3); NEUTROPHILS % (AUTO) 63.1 % (42.2-75.2); PLATELET COUNT (AUTO) 159 K/uL (140-450); RED CELL DISTRIBUTION WIDTH 22.7 % (11.6-13.7)
[2019-06-25] MEDS: LORazepam 2 MG/ML VIAL IVP SCH (06:01)
[2019-06-25] MEDS: PIPERACILLIN/TAZOBACTAM 3.375 GM in DEXTROSE 5% 50 ML IV SCH (06:01)
[2019-06-25 06:09] LABS: ANION GAP 14.3 (8-16); CARBON DIOXIDE 22.4 mmol/L (21-32); CREATININE 0.6 mg/dL (0.7-1.3); POTASSIUM 3.7 mmol/L (3.5-5.1)
[2019-06-25 06:19] LABS: MAGNESIUM 1.8 mg/dL (1.8-2.4); PHOSPHORUS 1.9 mg/dL (2.5-4.9)
--- NOTE | 2019-06-25 07:00 | NUR ---
ENDORSED TO AM SHIFT NURSE IN STABLE CONDITION FOR CONTINUITY OF CARE.
--- NOTE | 2019-06-25 07:05 | NUR ---
RECEIVED REPORT FROM CHARGE ENTRY CLERK NURSE. AAOX4, NO C/O PAIN AT THIS TIME. RESPIRATIONS EVEN AND UNLABORED ON RA. IV ON RT WRIST 22 GA RUNNING IVF PER ORDER. ABD SOFT, ACTIVE BS, LBM 06/25. SKIN IS INTACT, WARM TO TOUCH. PT ON FALL RISK PRECAUTIONS, SAFETY MEASURES IN PLACE, CALL LIGHT WITHIN REACH. REVIEWED POC WITH PT, PT VERBALIZED UNDERSTANDING.
[2019-06-25 08:00] VITALS: BP 127/80
[2019-06-25] MEDS ORDERED: LORazepam 2 MG/ML VIAL IVP SCH (08:00)
[2019-06-25 08:05] LABS: WHITE BLOOD COUNT (AUTO) 4.8 K/uL (4.8-10.8)
--- NOTE | 2019-06-25 08:26 | NUR ---
PATIENT HAS BEEN SCREENED AND CATEGORIZED HIGH NUTRITION RISK. PATIENT WILL BE SEEN WITHIN 1-2 DAYS OF ADMISSION. 06/25/[address]
[2019-06-25] MEDS: LACTULOSE 20 GM/30 ML UDC PO SCH (08:57)
[2019-06-25] MEDS: SODIUM FERRIC GLUCONATE 125 MG in NACL 0.9% 100 ML IV SCH (08:58)
[2019-06-25] MEDS: MULTIVITAMIN 1 TAB PO SCH (08:58)
[2019-06-25] MEDS: SENNA 8.6 MG TAB PO SCH (08:58)
[2019-06-25] MEDS: PANTOPRAZOLE 40 MG INJ VIAL IVP SCH (08:58)
[2019-06-25] MEDS: FOLIC ACID 1 MG TAB PO SCH (08:58)
--- NOTE | 2019-06-25 08:58 | NUR ---
ADMINISTERED MEDICATIONS PER ORDER, PT IS AWARE OF INDICATIONS AND POTENTIAL SIDE EFFECTS. NOTIFIED PATIENT THAT PROCEDURE IS SCHEDULE AT 1320 TODAY, PT'S QUESTIONS ANSWERED AND CLARIFIED.
[2019-06-25] MEDS: THIAMINE 100 MG TAB PO SCH (08:59)
[2019-06-25] MEDS: SUPREP BOWEL PREP KIT 354 ML SOLN.RECON PO SCH (09:00)
[2019-06-25 10:06] LABS: FOLIC ACID 17.3 ng/mL (>3.0)
[2019-06-25] MEDS: DEXT 5% /NACL 0.9% 1,000 ML IV SCH (10:30)
[2019-06-25] MEDS ORDERED: fentaNYL 0.05 MG/ML VIAL ONE (11:25)
[2019-06-25] MEDS ORDERED: diphenhydrAMINE 50 MG/ML VIAL ONE (11:25)
[2019-06-25] MEDS ORDERED: MIDAZOLAM 2 MG/2 ML VIAL ONE (11:25)
--- NOTE | 2019-06-25 11:30 | NUR ---
FAMILY AT BEDSIDE. PT TAKEN FOR PROCEDURE. PT HAS NO SIGNS OF DISTRESS AT THIS TIME.
[2019-06-25 12:30] VITALS: BP 111/81
--- NOTE | 2019-06-25 12:30 | NUR ---
PT RETURNED FROM PROCEDURE. RECEIVED REPORT FROM MARCUS GARY. PT'S VS WITHIN NORMAL RANGE, PT HAS NO C/O PAIN.
[2019-06-25] MEDS ORDERED: MIDAZOLAM 2 MG/2 ML VIAL IVP ONE (12:45)
[2019-06-25] MEDS ORDERED: fentaNYL 0.05 MG/ML VIAL IVP ONE (12:45)
--- NOTE | 2019-06-25 13:50 | NUR ---
PT SITTING UP IN BED HAVING LUNCH. PT HAS NO SIGNS OF DISTRESS OR C/O PAIN AT THIS TIME.
--- NOTE | 2019-06-25 14:03 | NUR ---
06/25/19 RD INITIAL ASSESSMENT COMPLETED PLEASE REFER TO NUTRITION ASSESSMENT UNDER CARE ACTIVITY FOR ESTIMATED NUTRITIONAL NEEDS. 1. CONTINUE NPO TOLERATED 2. IF/WHEN MEDICALLY APPROPRIATE TO BEGIN NUTRITION CONSIDER ADVANCE DIET TOLERATED TO CARDIAC DIET 3. RD TO FOLLOW-UP 2-3 DAYS, HIGH RISK MARTY JEAN BAPTISTE, RD
[2019-06-25] MEDS ORDERED: NACL 0.9% 1,000 ML IV SCH (15:35)
[2019-06-25 16:00] VITALS: BP 134/80
--- NOTE | 2019-06-25 16:00 | NUR ---
PT GIVEN APPLE JUICE PER REQUEST, TOLERATED FOOD WELL, NO C/O ABD PAIN.
[2019-06-25] MEDS ORDERED: SODIUM PHOS / POTASSIUM PHOS 1 PKT PDR PO SCH (16:30)
--- NOTE | 2019-06-25 16:39 | NUR ---
Special Event Assistant Note: I met with patient and patient's brother Gelacio Goldstein at bedside . Patient alert and oriented x4. Patient lives at home with Gelacio and plans to return home upon discharge. Independent with ADLs and does not use any DME at home. He does not have a pcp. I emphasized to him the importance of following up with a physician post discharge and regularly. I provided him with a list of low cost clinics. Patient reports alcohol abuse, he stated he does not want to seek treatment for alcohol abuse. I provided him with a list of alcohol/substance abuse treatment programs in case he changes his mind. Gelacio assist patient with transportation.
--- NOTE | 2019-06-25 16:40 | NUR ---
Business Applications Analyst Assessment/Discharge Plan Name: Gelacio Goldstein Home Relationship: brother Pre-Admission Living Arrangements: Lives with Other Other: Gelacio Goldstein Prior ADL Independent Current Home Health Name/Tel: N/A Current DME/02 Name/Tel: N/A Current Hospice Name/Tel: N/A Current Dialysis Name/Tel: N/A Healthcare Decision Maker: Patient Advance Directive No Information Taught: Community Resources Person Taught: Patient Teaching Tools: Community Resources Verbal Factors Affecting Learning: Lack of Motivation Participation Level: Poor Concentration Evaluation: Gestures Understanding Verbalizes Understanding Educator: MONICA Williamson Discipline: Case Mgt/Social Svcs Tentative Discharge Plan Summary: Patient is a 43 year old male with history of alcoholic liver disease, hypertension, and chronic anemia. I met with patient and patient's brother Gelacio Goldstein at bedside. Patient alert and oriented x4. Patient lives at home with his brother Gelacio and plans to return home upon discharge. Patient does not have a pcp. I emphasized to him the importance of following up with physician post discharge and regularly. However, patient expressed he is not interested on following up with a physician. He reported having alcohol abuse. He stated he does not want to seek treatment for alcohol abuse. Gelacio reported he is willing to accept community resources on behalf of patient and stated he also struggles with alcohol abuse but not as severe. I provided Gelacio with a list of alcohol/substance abuse treatment programs and a list of low cost clinics. Patient refused information on Advance Directive. Business Applications Analyst and/or Chief Nurse Executive will follow up as needed. Signature: MONICA Williamson Date: Jun 25, 2019
[2019-06-25] MEDS ORDERED: FERROUS SULFATE 325 MG TABEC PO SCH (17:00)
--- NOTE | 2019-06-25 17:19 | NUR ---
ADMINISTERED ZOSYN PER ORDER, PT IS AWARE OF INDICATION AND POTENTIAL SIDE EFFECTS.
[2019-06-25] MEDS ORDERED: PIPERACILLIN/TAZOBACTAM 3.375 GM in DEXTROSE 5% 50 ML IV SCH (18:00)
--- NOTE | 2019-06-25 19:30 | NUR ---
ENDORSED PT TO CENTER ADMINISTRATOR NURSE. PT HAS NO SIGNS OF DISTRESS AT THIS TIME.
--- NOTE | 2019-06-25 19:31 | NUR ---
RECEIVED ENDORSEMENT FROM AM SHIFT NURSE. PATIENT WITH FAMILY AT BEDSIDE. NO APPARENT DISTRESS NOTED. VERBALIZED WANTING TO LEAVE AGAINST MEDICAL ADVICE. CHARGE NURSE AND MD NOTIFIED. MD DISCUSSED RISK AND BENEFITS OF LEAVING AGAINST MEDICAL ADVICE. PATIENT AGREED TO STAY. WILL CONTINUE TO MONITOR.
[2019-06-25 20:00] VITALS: BP 141/86
[2019-06-25] MEDS ORDERED: LORazepam 2 MG/ML VIAL IM/IVP PRN (20:05)
--- NOTE | 2019-06-25 21:25 | NUR ---
PATIENT ASLEEP IN BED. BED ON LOW POSITION. CALL LIGHT WITHIN REACH. NO DISTRESS NOTED. WILL CONTINUE TO MONITOR.
--- NOTE | 2019-06-25 23:30 | NUR ---
PATIENT VERBALIZED THAT HE HAS DECIDED TO LEAVE AGAINST MEDICAL ADVICE. CHARGE NURSE NOTIFIED AND MD NOTIFIED. DR. WALKER (RESIDENT) SPOKE TO PATIENT AND PATIENT VERBALIZED UNDERSTANDING OF RISK AND BENEFITS OF LEAVING AGAINST MEDICAL ADVICE. OUT OF HOSPITAL AT 2330.
[2019-06-26] MEDS ORDERED: LACTULOSE 20 GM/30 ML UDC PO SCH (09:00)
[2019-06-26] MEDS ORDERED: PSYLLIUM 12.2 GM/PKT PO SCH (09:00)
== END 2019-06-25 23:30 | disposition left against medical advice (07) | DRG 282 ==
LOC: MED 15:17 → MMU 19:47 → MTU 20:43
PROVIDERS: ADMIT General Practice; ATTEND General Practice
PROC: 0DB68ZX Excision of Stomach, Via Natural or Artificial Opening Endoscopic, Diagnostic (ICD-10-PCS; 2019-06-24)
PROC: 30233N1 Transfusion of Nonautologous Red Blood Cells into Peripheral Vein, Percutaneous Approach (ICD-10-PCS; principal; 2019-06-24 10:00)
PROC: 0W3P8ZZ Control Bleeding in Gastrointestinal Tract, Via Natural or Artificial Opening Endoscopic (ICD-10-PCS; 2019-06-25)
DX: K85.90 Acute pancreatitis without necrosis or infection, unspecified (principal); S24.111 Complete lesion at T1 level of thoracic spinal cord; G92 Toxic encephalopathy; K55.21 Angiodysplasia of colon with hemorrhage; I85.00 Esophageal varices without bleeding; T51.91XA Toxic effect of unspecified alcohol, accidental (unintentional), initial encounter; E87.6 Hypokalemia; E83.39 Other disorders of phosphorus metabolism; I85.10 Secondary esophageal varices without bleeding; D50.9 Iron deficiency anemia, unspecified; F10.239 Alcohol dependence with withdrawal, unspecified; E78.5 Hyperlipidemia, unspecified; K74.60 Unspecified cirrhosis of liver; I10 Essential (primary) hypertension; K21.9 Gastro-esophageal reflux disease without esophagitis; Z53.29 Procedure and treatment not carried out because of patient's decision for other reasons; K05.30 Chronic periodontitis, unspecified; L03.211 Cellulitis of face; K57.30 Diverticulosis of large intestine without perforation or abscess without bleeding; K76.9 Liver disease, unspecified; K64.8 Other hemorrhoids; Z91.19 Patient's noncompliance with other medical treatment and regimen; Z79.899 Other long term (current) drug therapy; Y92.89 Other specified places as the place of occurrence of the external cause
CPT/HCPCS: 36415; 71045; 80048; 80053; 80305; 81001; 82140; 82150; 82607; 82728; 82746; 83036; 83540; 83605; 83690; 83735; 83880; 84100; 84439; 84443; 85025; 85045; 85610; 85730; 86677; 86886; 86900; 86901; 86920; 87040; 87081; 96365; 99285; C9113; G0482; J1200; J2060; J2250; J2543; J2916; J3010; J3480; J7030; J7042; J7060; P9016; Q0092

== ENCOUNTER 2020-07-18 08:51 | Emergency (ER) | payer MEDICAID, SELFPAY ==
[~2020-07-18] VITALS: Ht 172.7 cm; Wt 70.3 kg
[2020-07-18 09:06] VITALS: BP 122/69
--- NOTE | 2020-07-18 09:10 | NUR ---
C/O COUGH, CHILLS,RUNNY NOSE, CHEST, MID BACK PAIN, SOB X 1 WEEK. BROTHER HAD COVID TESTED+ 1 WEEK AGO. PMH: DENIES
--- NOTE | 2020-07-18 09:30 | NUR ---
COVID SWAB DONE.
[2020-07-18 09:39] VITALS: BP 122/69
--- NOTE | 2020-07-21 12:02 | NUR ---
RECEIVED CRITICAL LAB FROM SHREYAS, LAB: [facility] +
== END 2020-07-18 09:39 | disposition home or self-care (01) ==
LOC: MED 08:51
DX: U07.1 COVID-19 (principal); R05 Cough; M79.10 Myalgia, unspecified site; K21.9 Gastro-esophageal reflux disease without esophagitis; I10 Essential (primary) hypertension
CPT/HCPCS: 99283; U0003

== ENCOUNTER 2021-03-25 04:09 | Inpatient (IN) | payer MEDICAID, SELFPAY ==
[~2021-03-25] VITALS: Ht 172.7 cm; Wt 65.8 kg
[2021-03-25 04:15] VITALS: BP 126/85
--- NOTE | 2021-03-25 04:15 | NUR ---
to bed ambulatory
--- NOTE | 2021-03-25 05:03 | NUR ---
blood in his urine , abdominal pain, and stool, rectal bleed, for 2 days. patient complaining of RUQ abd pain of 6/10 and LLQ 4/10 and together reported that it feels like shooting pain going back and forth. stool is loose, black and bright red according to patient which he also does not have control over; "it just starts coming out". patient reports ingestion of 150oz of alcohol a day. AAOx4. pmh: hdl, gerd, cirrhosis, pancreatitis, esophageal varices, irone defiency, encephalopathy nka
[2021-03-25 05:40] LABS: BASOPHILS % (AUTO) 0.4 % (0.0-2.0); EOSINOPHILS # (AUTO) 0.1 K/uL (0-0.4); EOSINOPHILS % (AUTO) 1.9 % (0.0-4.0); HEMATOCRIT 23.2 % (36-52); LYMPHOCYTES # (AUTO) 1.8 K/uL (2.0-11.5); LYMPHOCYTES % (AUTO) 59.6 % (20.5-51.1); MEAN CORPUSCULAR HEMOGLOBIN 22 pg (27-31); MEAN CORPUSCULAR HGB CONC 30 g/dL (33-37); MEAN CORPUSCULAR VOLUME 74.1 fL (80-94); MONOCYTES # (AUTO) 0.2 K/uL (0.8-1.0); MONOCYTES % (AUTO) 7.7 % (1.7-9.3); NEUTROPHILS # (AUTO) 0.9 K/uL (1.8-7.7); NEUTROPHILS % (AUTO) 30.4 % (42.2-75.2); PLATELET COUNT (AUTO) 173 K/uL (140-450); RED BLOOD CELL COUNT(AUTO) 3.13 MIL/uL (4.20-6.10); RED CELL DISTRIBUTION WIDTH 24.9 % (11.6-13.7); WHITE BLOOD COUNT (AUTO) 3.1 K/uL (4.8-10.8)
[2021-03-25 05:43] LABS: HEMOGLOBIN 6.9 g/dL (12.0-18.0)
--- NOTE | 2021-03-25 05:50 | NUR ---
PER PATIENT CALL MAYO FOR UPDATES #[phone]
[2021-03-25 05:56] LABS: ANION GAP 15.7 (8-16); CREATININE 0.8 mg/dL (0.6-1.3); POTASSIUM 3.7 mmol/L (3.5-5.1); TOTAL BILIRUBIN 0.6 mg/dL (0.0-1.0)
--- NOTE | 2021-03-25 06:25 | NUR ---
ERMD at bedside for explanation of blood transfusion. consent signed by the patient. patient has understanding of the procedure. all questions asked and answered.
--- NOTE | 2021-03-25 07:07 | NUR ---
patient to CT via [facility]
--- NOTE | 2021-03-25 07:13 | NUR ---
Pt report given to Roslyn VELAZQUEZ. Transfer of care at this time.
--- NOTE | 2021-03-25 07:14 | NUR ---
Report received from Melania, RN and care was assumed.
[2021-03-25] MEDS: DEXT 5% /NACL 0.9% 1,000 ML IV SCH ×2 (07:28→20:28)
[2021-03-25] MEDS ORDERED: PANTOPRAZOLE 40 MG INJ VIAL IVP ONE (07:40)
[2021-03-25] MEDS ORDERED: LORazepam 2 MG/ML VIAL IVP ONE (07:40)
[2021-03-25] MEDS ORDERED: guaiFENesin DM 200/20 MG-10 ML 10 ML UDC PO PRN (08:10)
[2021-03-25] MEDS ORDERED: HYDROcodone/APAP 7.5/325 MG 1 TAB PO PRN (08:10)
[2021-03-25] MEDS ORDERED: POTASSIUM CHLORIDE 10 MEQ TABER PO PRN (08:10)
[2021-03-25] MEDS ORDERED: ONDANSETRON 4 MG/2 ML VIAL IM/IVP PRN (08:10)
[2021-03-25] MEDS ORDERED: DOCUSATE SODIUM 100 MG GELCAP PO PRN (08:10)
--- NOTE | 2021-03-25 08:29 | NUR ---
Informed Dr. Gonzalez that patient received 40mg of Protonix this AM; per Dr. Gonzalez, valorieay to hold dose he ordered.
--- NOTE | 2021-03-25 08:31 | NUR ---
XRAY at the bedside.
[2021-03-25 08:52] LABS: CHOL/HDL RATIO 1.3 (1-4.5); FREE T4 (FREE THYROXINE) 0.88 ng/dL (0.76-1.46); PHOSPHORUS 3.5 mg/dL (2.5-4.9); THYROID STIMULATING HORMONE 1.53 uIU/mL (0.34-3.74)
--- NOTE | 2021-03-25 08:53 | NUR ---
Per lab clerk, blood not ready at this time.
[2021-03-25] MEDS ORDERED: PANTOPRAZOLE 40 MG INJ VIAL IVP SCH (09:00)
--- NOTE | 2021-03-25 09:11 | NUR ---
Dr. Gonzalez at the bedside evaluating patient. Per Dr. Gonzalez, re draw troponin at 1200.
--- NOTE | 2021-03-25 09:15 | NUR ---
Per pablo Hurst for patient to have ice chips.
--- NOTE | 2021-03-25 10:20 | NUR ---
Patient unable to provide urine specimen at this time, ERMD aware.
--- NOTE | 2021-03-25 11:20 | NUR ---
Patient resting comfortably in bed; VSS; call light within reach and bed locked in the lowest position.
--- NOTE | 2021-03-25 12:20 | NUR ---
Patient resting comfortably in bed; VSS; call light within reach and bed locked in the lowest position.
[2021-03-25 12:45] LABS: APPEARANCE,URINE CLOUDY (CLEAR); BILIRUBIN,URINE NEGATIVE (NEGATIVE); BLOOD, URINE TRACE-L (NEGATIVE); COLOR,URINE YELLOW (YELLOW); LEUKOCYTE ESTERASE ,URINE NEGATIVE (NEGATIVE); NITRITE, URINE NEGATIVE (NEGATIVE); UGLUCOSE NEGATIVE (NEGATIVE)
[2021-03-25 13:06] LABS: BARBITURATE, URINE NEGATIVE ng/ml (NEG <=200); BENZODIAZEPINE, URINE NEGATIVE ng/mL (NEG <=200); CANNABINOID, URINE POSITIVE ng/mL (NEG <=50); COCAINE, URINE NEGATIVE ng/mL (NEG <=300); OPIATE, URINE NEGATIVE ng/mL (NEG <=2000); PHENCYCLIDINE SCREEN,URINE NEGATIVE ng/mL (NEG <=25)
--- NOTE | 2021-03-25 13:30 | NUR ---
Patient resting comfortably in bed; VSS; call light within reach and bed locked in the lowest position.
[2021-03-25] MEDS: PANTOPRAZOLE 40 MG INJ VIAL IVP SCH ×2 (14:15→21:50)
--- NOTE | 2021-03-25 14:16 | NUR ---
Dr. Corado at the bedside evaluating patient.
--- NOTE | 2021-03-25 14:27 | NUR ---
Dr. Corado notified and aware that patient has tolerated ice chips well. Per Dr. Corado, patient can advance to clear liquid diet.
[2021-03-25] MEDS ORDERED: OCTREOTIDE ACETATE 1.25 MG in NACL 0.9% 250 ML IV SCH (15:00)
--- NOTE | 2021-03-25 15:20 | NUR ---
Patient resting comfortably in bed; VSS; call light within reach and bed locked in the lowest position.
--- NOTE | 2021-03-25 15:24 | NUR ---
Alexei at the pharmacy notified and aware of orders for sandostatin and ferrlecit.
--- NOTE | 2021-03-25 16:20 | NUR ---
Patient ambulated to the restroom with a steady gait.
[2021-03-25 17:27] LABS: BASOPHILS # (AUTO) 0.1 K/uL (0.00-0.22); BASOPHILS % (AUTO) 2.5 % (0.0-2.0); EOSINOPHILS # (AUTO) 0.2 K/uL (0-0.4); HEMATOCRIT 25.5 % (36-52); HEMOGLOBIN 7.8 g/dL (12.0-18.0); LYMPHOCYTES # (AUTO) 0.8 K/uL (2.0-11.5); LYMPHOCYTES % (AUTO) 21.9 % (20.5-51.1); MEAN CORPUSCULAR HEMOGLOBIN 24 pg (27-31); MEAN CORPUSCULAR HGB CONC 31 g/dL (33-37); MEAN CORPUSCULAR VOLUME 76.9 fL (80-94); MONOCYTES # (AUTO) 0.4 K/uL (0.8-1.0); MONOCYTES % (AUTO) 11.5 % (1.7-9.3); NEUTROPHILS # (AUTO) 2.3 K/uL (1.8-7.7); NEUTROPHILS % (AUTO) 60.1 % (42.2-75.2); PLATELET COUNT (AUTO) 145 K/uL (140-450); RED BLOOD CELL COUNT(AUTO) 3.32 MIL/uL (4.20-6.10); RED CELL DISTRIBUTION WIDTH 23.5 % (11.6-13.7); WHITE BLOOD COUNT (AUTO) 3.7 K/uL (4.8-10.8)
[2021-03-25] MEDS: SODIUM FERRIC GLUCONATE 125 MG in NACL 0.9% 100 ML IV SCH (17:43)
--- NOTE | 2021-03-25 17:53 | NUR ---
Patient ambulated to the restroom with a steady gait.
--- NOTE | 2021-03-25 18:20 | NUR ---
Patient provided with tray of clear liquid diet.
--- NOTE | 2021-03-25 19:28 | NUR ---
REPORT RECEIVED FROM MARCUS BLANCO. TRANSFER OF CARE AT THIS TIME.
--- NOTE | 2021-03-25 19:28 | NUR ---
Report given to MARCUS Bauer for continuation of care.
--- NOTE | 2021-03-25 19:32 | NUR ---
PT WAS SLEEPING, OPENED EYES TO SOUND. PT STATED HE IS DOING WELL AND WOULD LIKE TO REST. ALL NEEDS MET AT THIS TIME. BED LOCKED IN LOWEST POSITION, SIDE RAILS X2.
--- NOTE | 2021-03-25 20:43 | NUR ---
REPORT GIVEN TO MARCUS LEONG. [id number] RM [id number]
--- NOTE | 2021-03-25 20:46 | NUR ---
HANDOFF REPORT FROM MARCUS BARRAGAN. PENDING ADMISSION FROM HOME THIS IS A 45 YEAR OLD MALE PATIENT OF DOCTOR AMAIRANI. PATIENT IS CURRENTLY RECEIVING TREATMENT OF SANDOSTATIN DRIP FOR DIAGNOSIS OF GASTROINTESTINAL BLEEDING. PATIENT HAS ALSO RECEIVED ONE UNIT OF PACKED RED BLOOD CELLS. THE PATIENT RESIDES WITH FAMILY AND HAS A HISTORY OF VARIOUS CHRONIC DISEASES. WILL GRANADO RN
--- NOTE | 2021-03-25 20:55 | NUR ---
Patient will be admitted to care of DR BALES. Admited to [facility]. Will go to room 119A. Belongings list completed. Report to MARCUS GRANADO.
[2021-03-25] MEDS: HYDROCORTISONE SUPPOSITORY 25 MG SUPP RC SCH (21:00)
[2021-03-25] MEDS: LACTULOSE 20 GM/30 ML UDC PO SCH (21:51)
[2021-03-25] MEDS ORDERED: MELA5SGL PO (22:09)
--- NOTE | 2021-03-25 22:10 | NUR ---
PATIENT REQUESTING A SLEEPING MEDICATION, MELATONIN. WILL OFFER NEEDED MEDICATION. WILL GRANADO RN
[2021-03-25] MEDS: ZOLPIDEM 5 MG TAB PO PRN (22:55)
[2021-03-26] VITALS: BP 168/76
--- NOTE | 2021-03-26 00:36 | NUR ---
ROUNDS RE - ESTABLISH IV TO SANDOSTATIN DRIP AFTER BATHROOM PRIVILEGES. PATIENT REQUEST TO DISCONTINUE LEFT HAND 18G IV SITE. THE PATIENT IS AWAKE WATCHING TELEVISION. WILL GRANADO RN
--- NOTE | 2021-03-26 02:28 | NUR ---
CALL TO DOCTOR MILTON PATIENT SAYS HE WOULD LIKE TO EAT INSTEAD OF MAINTAIN NPO STATUS FOR ESOPHAGOGASTRODUODENOSCOPY. WILL GRANADO RN
[2021-03-26 04:00] VITALS: BP 125/55
--- NOTE | 2021-03-26 05:54 | NUR ---
CALL FROM PATIENT'S BROTHER. SAYS HE WOULD CALL LATER TO SPEAK WITH THE PATIENT WHO IS SLEEPING. WILL GRANADO RN
--- NOTE | 2021-03-26 06:54 | NUR ---
PATIENT WATER CUP AND PITCHER REMOVED FROM PATIENT BEDSIDE IN EVENT HE DECIDES TO HAVE EGD TODAY. WAS TAKING CLEAR LIQUIDS THIS SHIFT AGAINST ORDER OF . WILL GRANADO RN
[2021-03-26 07:08] LABS: FOLIC ACID 15.5 ng/mL (>3.0)
[2021-03-26 07:33] LABS: ANION GAP 12.3 (8-16); CARBON DIOXIDE 26.1 mmol/L (21-32); CREATININE 0.8 mg/dL (0.6-1.3); POTASSIUM 3.4 mmol/L (3.5-5.1)
[2021-03-26 07:37] LABS: HEMATOCRIT 24.2 % (36-52); HEMOGLOBIN 7.5 g/dL (12.0-18.0); MEAN CORPUSCULAR HEMOGLOBIN 23 pg (27-31); RED BLOOD CELL COUNT(AUTO) 3.22 MIL/uL (4.20-6.10)
[2021-03-26 07:46] LABS: MEAN CORPUSCULAR HGB CONC 31 g/dL (33-37); MEAN CORPUSCULAR VOLUME 75.1 fL (80-94); PLATELET COUNT (AUTO) 123 K/uL (140-450); WHITE BLOOD COUNT (AUTO) 4.4 K/uL (4.8-10.8)
--- NOTE | 2021-03-26 07:48 | NUR ---
HANDOFF WITH MARCUS COLIN. WILL GRANADO RN
[2021-03-26 08:00] VITALS: BP 132/73
--- NOTE | 2021-03-26 08:37 | NUR ---
PATIENT HAS BEEN SCREENED AND CATEGORIZED HIGH NUTRITION RISK. PATIENT WILL BE SEEN WITHIN 1-2 DAYS OF ADMISSION. 03/26/21 FNS REFERRAL RECEIVED FOR UNINTENTIONAL WT LOSS [address]Y [address]
[2021-03-26] MEDS: HYDROCORTISONE SUPPOSITORY 25 MG SUPP RC SCH ×2 (09:00→21:00)
[2021-03-26] MEDS: LACTULOSE 20 GM/30 ML UDC PO SCH ×2 (09:20→22:22)
[2021-03-26] MEDS: DEXT 5% /NACL 0.9% 1,000 ML IV SCH (09:20)
[2021-03-26] MEDS: PANTOPRAZOLE 40 MG INJ VIAL IVP SCH (09:20)
[2021-03-26 09:21] LABS: EOSINOPHILS % (MANUAL) 3 % (0-4); LYMPHOCYTES % (MANUAL) 7 % (20-46); MONOCYTES % (MANUAL) 11 % (5-12)
--- NOTE | 2021-03-26 14:00 | NUR ---
Patient left unit at this time via hospital bed for EGD. Patient is accompanied by OR nurses.
[2021-03-26] MEDS ORDERED: MIDAZOLAM 5 MG/5 ML VIAL ONE (14:09)
[2021-03-26] MEDS ORDERED: fentaNYL citrate 0.05 MG/ML VIAL ONE (14:09)
[2021-03-26] MEDS ORDERED: diphenhydrAMINE 50 MG/ML VIAL ONE (14:27)
[2021-03-26] MEDS ORDERED: DIAZEPAM PFS 10 MG/2 ML SYR ONE (14:28)
--- NOTE | 2021-03-26 14:57 | NUR ---
03/26/21 RD INITIAL ASSESSMENT COMPLETED PLEASE REFER TO NUTRITION ASSESSMENT UNDER CARE ACTIVITY FOR ESTIMATED NUTRITIONAL NEEDS. 1. CONTINUE NPO 2. IF/WHEN MEDICALLY CLEARED RECOMMEND REGULAR DIET 3. RECOMMENDED MULTIVITAMIN ONCE DAILY 4. RECOMMEND ENSURE TID 5. PROVIDED SOBRIETY NUTRITION HANDOUT 6. RD TO FOLLOW-UP 3-5 DAYS, MODERATE RISK MARTY [address]
--- NOTE | 2021-03-26 15:00 | NUR ---
Patient came back to room 119A after EGD. Report received from OR nurse Kirsty. Patient is resting in bed, respirations even & nonlabored, arousable to voice. Call light within reach. Right forearm IV intact with ongoing D5NS @ 40ml/hr.
--- NOTE | 2021-03-26 15:26 | NUR ---
RECEIVED TORB FOR MULTIVITAMIN ONCE DAILY.
[2021-03-26] MEDS ORDERED: MIDAZOLAM 2 MG/2 ML VIAL IVP ONE (15:30)
[2021-03-26] MEDS ORDERED: fentaNYL citrate 0.05 MG/ML VIAL IVP ONE (15:30)
[2021-03-26] MEDS ORDERED: diphenhydrAMINE 50 MG/ML VIAL IVP ONE (15:30)
[2021-03-26 16:00] VITALS: BP 132/73
[2021-03-26] MEDS: FERROUS SULFATE 325 MG TABEC PO SCH (16:32)
[2021-03-26] MEDS: SODIUM FERRIC GLUCONATE 125 MG in NACL 0.9% 100 ML IV SCH (16:33)
[2021-03-26] MEDS ORDERED: AMITRIPTYLINE 25 MG TAB PO SCH (21:00)
[2021-03-26] MEDS: ZOLPIDEM 5 MG TAB PO PRN (22:22)
[2021-03-26 23:30] VITALS: BP 141/75
[2021-03-27] MEDS: ACETAMINOPHEN 325 MG TAB PO PRN ×2 (00:03→09:20)
[2021-03-27 01:30] VITALS: BP 135/72
[2021-03-27 05:04] VITALS: BP 110/60
[2021-03-27] MEDS: DEXT 5% /NACL 0.9% 1,000 ML IV SCH (05:04)
[2021-03-27 06:27] LABS: BASOPHILS % (AUTO) 0.9 % (0.0-2.0); EOSINOPHILS % (AUTO) 0.2 % (0.0-4.0); HEMATOCRIT 24.1 % (36-52); HEMOGLOBIN 7.4 g/dL (12.0-18.0); LYMPHOCYTES # (AUTO) 0.5 K/uL (2.0-11.5); LYMPHOCYTES % (AUTO) 11.1 % (20.5-51.1); MEAN CORPUSCULAR HEMOGLOBIN 24 pg (27-31); MEAN CORPUSCULAR HGB CONC 31 g/dL (33-37); MEAN CORPUSCULAR VOLUME 76.9 fL (80-94); MONOCYTES # (AUTO) 0.5 K/uL (0.8-1.0); NEUTROPHILS # (AUTO) 3.3 K/uL (1.8-7.7); NEUTROPHILS % (AUTO) 75.8 % (42.2-75.2); PLATELET COUNT (AUTO) 113 K/uL (140-450); RED BLOOD CELL COUNT(AUTO) 3.13 MIL/uL (4.20-6.10); RED CELL DISTRIBUTION WIDTH 23.1 % (11.6-13.7); WHITE BLOOD COUNT (AUTO) 4.4 K/uL (4.8-10.8)
--- NOTE | 2021-03-27 07:00 | NUR ---
PT SPIKED TEMP OF 101.6 (TA) @ 2330. COOLING MEASURES INITIATED AND TYLENOL GIVEN PO. PO FLUIDS ENC. TEMP RECHECK @ 0130= 99.6 (TA). NOTIFIED. WILL BE IN TO ASSESS PT THIS AM. NO NEW ORDERS GIVEN AT THIS TIME.
[2021-03-27 07:02] LABS: ANION GAP 12.4 (8-16); CARBON DIOXIDE 23.3 mmol/L (21-32); CREATININE 0.7 mg/dL (0.6-1.3); POTASSIUM 3.7 mmol/L (3.5-5.1)
--- NOTE | 2021-03-27 07:30 | NUR ---
PT AAOX4. NO SOB NOTED. NO C/O PAIN AT THIS TIME. IV TO RAC PATENT AND INTACT. CHEST CLEAR. ABDOMEN SOFT, BOWEL SOUNDS PRESENT. INSTRUCTED PT TO CALL FOR ASSISTANCE, CALL LIGHT WITHIN REACH, PT VERBALIZED UNDERSTANDING.
[2021-03-27 08:00] VITALS: BP 115/69
[2021-03-27] MEDS: HYDROCORTISONE SUPPOSITORY 25 MG SUPP RC SCH (09:00)
[2021-03-27] MEDS ORDERED: MULTIVITAMIN/MINERALS 1 TAB PO SCH (09:00)
[2021-03-27] MEDS: FERROUS SULFATE 325 MG TABEC PO SCH ×2 (09:20→13:24)
[2021-03-27] MEDS: LACTULOSE 20 GM/30 ML UDC PO SCH (09:20)
--- NOTE | 2021-03-27 09:30 | NUR ---
PT CONSUMED 75% OF BREAKFAST SERVED. MEAL TOLERATED WELL.
[2021-03-27] MEDS ORDERED: FERR325E14 PO (11:44)
[2021-03-27] MEDS ORDERED: PANT40EC PO (11:44)
[2021-03-27 12:00] VITALS: BP 118/72
--- NOTE | 2021-03-27 13:00 | NUR ---
DISCHARGE INSTRUCTIONS GIVEN TO PT WHICH VERBALIZED FULL UNDERSTANDING OF THE TEACHINGS GIVEN AND THE NEED TO FF UP WITH OWN PCP WITHIN 3-5 DAYS AFTER DISCHARGE. ARM BANDS AND IV REMOVED CANNULA TIP INTACT.
--- NOTE | 2021-03-27 13:40 | NUR ---
PT WHEELED OUT TO THE FRONT LOBBY IN STABLE CONDITION, NO COMPLAINTS MADE, PT ME IS D/C HOME WITH NEPHEW. BOTH PT AND NEPHEW MADE AWARE THAT PT'S PRESCRIPTION WERE SENT TO [facility] IN [place], BOTH VERBALIZED UNDERSTANDING.
[2021-03-28 06:07] LABS: T4 (THYROXINE) 5.2 ug/dL (4.5-12.0)
== END 2021-03-27 13:40 | disposition home or self-care (01) | DRG 368 ==
LOC: MED 04:09 → MMU 07:13 → MTU 19:16
PROVIDERS: ADMIT Family Medicine; ATTEND Family Medicine
PROC: 30233N1 Transfusion of Nonautologous Red Blood Cells into Peripheral Vein, Percutaneous Approach (ICD-10-PCS; 2021-03-25)
PROC: 0DJ08ZZ Inspection of Upper Intestinal Tract, Via Natural or Artificial Opening Endoscopic (ICD-10-PCS; principal; 2021-03-26 14:00)
DX: I85.00 Esophageal varices without bleeding (principal); I21.A1 Myocardial infarction type 2; K57.31 Diverticulosis of large intestine without perforation or abscess with bleeding; E87.1 Hypo-osmolality and hyponatremia; K56.0 Paralytic ileus; D50.9 Iron deficiency anemia, unspecified; F10.10 Alcohol abuse, uncomplicated; K57.90 Diverticulosis of intestine, part unspecified, without perforation or abscess without bleeding; Z20.822 Contact with and (suspected) exposure to COVID-19; K21.9 Gastro-esophageal reflux disease without esophagitis; I10 Essential (primary) hypertension; E78.2 Mixed hyperlipidemia; E87.6 Hypokalemia; R73.9 Hyperglycemia, unspecified; E83.51 Hypocalcemia; F12.10 Cannabis abuse, uncomplicated; R74.01 Elevation of levels of liver transaminase levels; K52.9 Noninfective gastroenteritis and colitis, unspecified; Y90.9 Presence of alcohol in blood, level not specified
CPT/HCPCS: 36415; 71045; 80048; 80053; 80305; 81003; 82150; 82607; 82728; 82746; 83036; 83540; 83690; 83735; 83880; 84100; 84436; 84439; 84443; 84479; 84484; 85025; 85045; 85610; 85730; 86886; 86900; 86901; 86920; 87081; 93005; 96365; 96375; 96376; 99285; C9113; J1200; J2060; J2250; J2354; J2916; J3010; J3360; J7030; P9016; Q9967

== ENCOUNTER 2021-07-24 13:35 | Emergency (ER) | payer SELFPAY ==
[~2021-07-24] VITALS: Ht 172.7 cm; Wt 63.0 kg
[~2021-07-24 13:35] MED LIST changes: +DOCU-299 PO; +FERR325E14 PO; +FOLI1TAB90 PO; +LIB25 PO; -LORA-476 PO; +MELA3TAB21 PO; +MULT-2086 PO; -PANT40EC PO; +THIA-34 PO; +[UNRECOGNIZED DRUG - CODE] PO
[2021-07-24 14:29] VITALS: BP 126/69
--- NOTE | 2021-07-24 14:44 | NUR ---
CALLED BY PERLITA MARKS AND NO ANSWER.
--- NOTE | 2021-07-24 15:08 | NUR ---
CALLED PERLITA MARKS - NO ANSWER
--- NOTE | 2021-07-24 15:08 | NUR ---
PATIENT LEFT WITHOUT BEING SEEN BY DR. MARKS. NO FURTHER CARE PROVIDED FOR PATIENT.
== END 2021-07-24 15:08 | disposition left against medical advice (07) ==
LOC: MED 13:35
DX: S01.91XD Laceration without foreign body of unspecified part of head, subsequent encounter (principal); M25.511 Pain in right shoulder; Z53.21 Procedure and treatment not carried out due to patient leaving prior to being seen by health care provider; X58.XXXD Exposure to other specified factors, subsequent encounter

== ENCOUNTER 2023-03-23 14:12 | Emergency (ER) | payer OTHER ==
[~2023-03-23] VITALS: Ht 172.7 cm; Wt 62.2 kg
[2023-03-23 14:26] VITALS: BP 132/76; PULSE 92; RESP 20; TEMP 98.9; O2SAT 100
== END 2023-03-23 16:19 | disposition left against medical advice (07) ==
LOC: MED 14:12
DX: R06.02 Shortness of breath (principal); Z53.21 Procedure and treatment not carried out due to patient leaving prior to being seen by health care provider
CPT/HCPCS: 99281

== ENCOUNTER 2023-08-03 21:42 | Emergency (ER) | payer OTHER ==
[~2023-08-03] VITALS: Ht 167.6 cm; Wt 65.8 kg
[~2023-08-03 21:42] MED LIST changes: +[UNRECOGNIZED DRUG - CODE] PO; -[UNRECOGNIZED DRUG - CODE] PO
[2023-08-03 21:50] VITALS: BP 111/69; PULSE 95; RESP 16; TEMP 97.7; O2SAT 100
[2023-08-04 01:15] VITALS: BP 111/69; PULSE 95; RESP 16; TEMP 97.7; O2SAT 100
[2023-08-04] MEDS ORDERED: KETOROLAC 30 MG/ML VIAL IM ONE (05:35)
[2023-08-04] MEDS ORDERED: NAPR-54 PO (05:37)
[2023-08-04] MEDS ORDERED: ALBU0.0912 IH (05:37)
== END 2023-08-04 01:15 | disposition left against medical advice (07) ==
LOC: MED 21:42
DX: R06.02 Shortness of breath (principal); R07.9 Chest pain, unspecified; R42 Dizziness and giddiness; Z53.21 Procedure and treatment not carried out due to patient leaving prior to being seen by health care provider
CPT/HCPCS: 93005; 99281